=== PATIENT | female | born 1985 | race Caucasian/White ===

== ENCOUNTER 2017-03-21 15:54 | Outpatient (CLI) | payer OTHER ==
--- NOTE | 2017-03-21 18:09 | DIAGNOSTIC IMAGING REPORT ---
PROCEDURE: US OB DETAILED ANATOMIC INDICATION: ANATOMY TECHNIQUE: [place] scale, color, and spectral Doppler images of the second trimester gravid uterus were obtained. COMPARISON: None. FINDINGS: A single living intrauterine is in variable presentation. There is regular cardiac activity at a rate of 153 beats per minute. The placenta is anterior and away from the internal cervical os. The cervix is closed measuring approximately 3.8 cm in length. The amniotic fluid volume is subjectively normal. Biparietal diameter 4.9 cm at 20 weeks and 6-day Head circumference 18.3 cm at 20 weeks and 4-day Abdominal circumference 15.6 cm at 20 weeks and 5-day Femur length 3.4 cm at 20 weeks and 3-day Head to abdominal circumference ratio and femur length to abdominal circumference ratios are normal. Estimated weight 386 g Composite gestational age 20 weeks and 5 days, KAREN 08/03/2017 There was visualization of a number of normal structures including the intracranial contents, facial features, nuchal region, spine, four-chamber heart and outflow tracts to the extent that could be visualized, diaphragm, fluid-filled stomach, kidneys, abdomen, urinary bladder, upper and lower extremities, and genitals. A three-vessel umbilical cord, normal and placental cord insertion sites were seen. IMPRESSION: 1. Single living intrauterine with a composite gestational age of 20 weeks and 5 days, KAREN 08/03/2017 2. Symmetric and normal anatomy.
== END 2017-03-21 23:00 ==
LOC: US SRH 15:54
DX: Z34.82 Encounter for supervision of other normal pregnancy, second trimester (principal)
CPT/HCPCS: 90074; 91286

== ENCOUNTER → 2017-04-22 | Outpatient (CLI) | payer OTHER ==
[~2017-04-22] MED LIST: FLONASE AL50 MCG/ACT; PRENATAL VITAMINS PO; PRILOSEC OTC20 MG PO
== END ==
LOC: LAB SRH 15:22
DX: Z34.82 Encounter for supervision of other normal pregnancy, second trimester (principal)
CPT/HCPCS: 90004; 90074; 90078; 90261; 90364; 90599; 90600; 90605; 90606; 90710; 90851; 92863; 93140; 98480; 99777

== ENCOUNTER 2017-05-04 18:19 | Outpatient (CLI) | payer OTHER ==
[2017-05-04] MEDS ORDERED: PRENATAL VITAMINS PO (20:08)
[2017-05-04] MEDS ORDERED: PRILOSEC OTC20 MG PO (20:09)
[2017-05-04] MEDS ORDERED: FLONASE AL50 MCG/ACT (20:10)
== END 2017-05-04 20:40 | disposition home or self-care (01) ==
LOC: OBC SRH 18:19 → OB SRH 18:20 → OBC SRH 20:40
PROC: 4A0HXCZ Measurement of Products of Conception, Cardiac Rate, External Approach (ICD-10-PCS; principal; 2017-05-04)
DX: O26.852 Spotting complicating pregnancy, second trimester (principal); Z3A.26 26 weeks gestation of pregnancy